=== PATIENT | female | born 1995 | race American Indian/Alaskan Native ===

== ENCOUNTER 2018-02-09 14:31 | Emergency (ER) | payer MEDICAID, OTHER ==
[2018-02-09 14:57] VITALS: BP 105/61
[2018-02-09 15:19] LABS: Bacteria,Urine 1+ /HPF (Negative); Bilirubin,Urine NEG (Negative); Blood,Urine SM (Negative); Color,Urine Yellow (Yellow); Mucus,Urine 3+ /HPF; Protein,Urine <15 mg/dL mg/dL (Negative); Urobilinogen,Urine < 2.0 mg/dL (<2.0)
[2018-02-09 15:20] LABS: HCG Qualitative,Urine Negative (Negative)
[2018-02-09] MEDS ORDERED: MOTRIN PO ONE (17:00)
--- NOTE | 2018-02-09 18:01 | Emergency Department Report ---
ED Chest Pain HPI - General Chief Complaint: Chest Pain Stated Complaint: BACK PAIN, C/P, DC Time Seen by Provider: 02/09/18 16:48 Source: patient Mode of arrival: Ambulatory Limitations: No Limitations - History of Present Illness Initial Comments: Patient is a 22-year-old -[place] female who has had 2 days of back and chest pain. Patient states this is soreness that hurts when she breathes hurts when she moves. Patient has a very mild cough is nonproductive as well. Patient denies any fevers chills nausea vomiting diarrhea at this time. Severity scale (0 -10): 4 - Related Data Previous Rx's Medication Instructions Recorded Last Taken Type Azithromycin [Zithromax TAB] 500 mg PO QDAY #3 tablet 08/03/14 Unknown Rx Naproxen [Naprosyn TAB] 500 mg PO BID #20 tablet 08/03/14 Unknown Rx Prednisone [Prednisone 10 mg 10 mg PO .TAPER #1 tab.ds.pk 08/03/14 Unknown Rx (6-Day Pack, 21 Tabs)] Promethazine /Codeine 5 ml PO Q6H PRN #120 ml 08/03/14 Unknown Rx [Phenergan/Codeine 6.25-10 mg/5 ml] Ibuprofen [Motrin] 600 mg PO Q8H PRN #20 tablet 02/09/18 Unknown Rx predniSONE [Deltasone] 20 mg PO QDAY #5 tab 02/09/18 Unknown Rx traMADol [Ultram] 50 mg PO Q6HR PRN #10 tablet 02/09/18 Unknown Rx Allergies Allergy/AdvReac Type Severity Reaction Status Date / Time No Known Allergies Allergy Verified 02/09/18 14:51 Heart Score - HEART Score History: Slightly suspicious EKG: Normal Age: < 45 Risk factors: No known risk factors Troponin: < normal limit (troponin was not done secondary to her age) HEART Score: 0 ED Review of Systems ROS: Stated complaint: BACK PAIN, C/P, DC Other details as noted in HPI Comment: All other systems reviewed and negative ED Past Medical Hx - Past Medical History Previous Medical History?: No - Surgical History Past Surgical History?: No - Social History Smoking Status: Current Every Day Smoker Substance Use Type: Alcohol - Medications Home Medications: Home Medications Medication Instructions Recorded Confirmed Last Taken Type Azithromycin [Zithromax TAB] 500 mg PO QDAY #3 tablet 08/03/14 Unknown Rx Naproxen [Naprosyn TAB] 500 mg PO BID #20 tablet 08/03/14 Unknown Rx Prednisone [Prednisone 10 mg 10 mg PO .TAPER #1 tab.ds.pk 08/03/14 Unknown Rx (6-Day Pack, 21 Tabs)] Promethazine /Codeine 5 ml PO Q6H PRN #120 ml 08/03/14 Unknown Rx [Phenergan/Codeine 6.25-10 mg/5 ml] Ibuprofen [Motrin] 600 mg PO Q8H PRN #20 tablet 02/09/18 Unknown Rx predniSONE [Deltasone] 20 mg PO QDAY #5 tab 02/09/18 Unknown Rx traMADol [Ultram] 50 mg PO Q6HR PRN #10 tablet 02/09/18 Unknown Rx ED Physical Exam - General Limitations: No Limitations General appearance: alert, in no apparent distress - Head Head exam: Present: atraumatic, normocephalic - Eye Eye exam: Present: normal appearance - ENT ENT exam: Present: mucous membranes moist - Neck Neck exam: Present: normal inspection - Respiratory Respiratory exam: Present: normal lung sounds bilaterally. Absent: respiratory distress, wheezes, rales, rhonchi - Cardiovascular Cardiovascular Exam: Present: regular rate, normal rhythm. Absent: systolic murmur, diastolic murmur, rubs, gallop - GI/Abdominal GI/Abdominal exam: Present: soft, normal bowel sounds. Absent: distended, tenderness, guarding, rebound - Extremities Exam Extremities exam: Present: normal inspection - Back Exam Back exam: Present: normal inspection - Neurological Exam Neurological exam: Present: alert, oriented X3 - Psychiatric Psychiatric exam: Present: normal affect, normal mood - Skin Skin exam: Present: warm, dry, intact, normal color. Absent: rash ED Course Vital Signs 02/09/18 14:52 Temperature 97.9 F Pulse Rate 89 Respiratory 16 Rate Blood Pressure 105/61 O2 Sat by Pulse 100 Oximetry ED Medical Decision Making - EKG Data -: EKG Interpreted by Me EKG shows normal: sinus rhythm, axis, intervals, QRS complexes, ST-T waves Rate: normal - EKG Data Interpretation: normal EKG - Radiology Data Chest x-ray is within normal limits - Medical Decision Making Patient will be treated for pleurisy and be discharged home. Critical care attestation.: If time is entered above; I have spent that time in minutes in the direct care of this critically ill patient, excluding procedure time. ED Disposition Clinical Impression: Pleurisy Disposition: DC-01 TO HOME OR SELFCARE Is pt being admited?: No Does the pt Need Aspirin: No Condition: Stable Instructions: Pleurisy (ED) Referrals: PRIMARY CARE, [Primary Care Provider] - 3-5 Days
--- NOTE | 2018-02-09 18:26 | XRay Report ---
FINAL REPORT EXAM: XR CHEST ROUTINE 2V HISTORY: cough TECHNIQUE: PA and lateral views of the chest PRIORS: None. FINDINGS: Lines, tubes, and devices: N/A Lungs and pleura: Trachea is normal in position. Lungs are clear of infiltrate, pleural effusion, vascular congestion, or pneumothorax. Cardiomediastinal silhouette: Cardiac and mediastinal silhouettes are unremarkable. Other: Bony structures are intact. IMPRESSION: No acute cardiopulmonary process seen.
== END 2018-02-09 18:12 | disposition home or self-care (01) ==
LOC: ED 14:31
DX: R09.1 Pleurisy (principal); M54.9 Dorsalgia, unspecified; F17.200 Nicotine dependence, unspecified, uncomplicated
CPT/HCPCS: 71046; 81001; 81025; 93005; 93010; 99284

== ENCOUNTER 2018-09-30 10:34 | Emergency (ER) | payer OTHER ==
[2018-09-30 10:39] VITALS: BP 107/53
[2018-09-30] MEDS ORDERED: DECADRON IM ONE (11:02)
[2018-09-30] MEDS ORDERED: BICILLIN L-A IM ONE (11:02)
--- NOTE | 2018-09-30 11:05 | Emergency Department Report ---
ED ENT HPI - General Chief complaint: Sore Throat Stated complaint: SORE THROAT/HARD TO SWALLOW Time Seen by Provider: 09/30/18 10:55 Source: patient Mode of arrival: Ambulatory Limitations: No Limitations - History of Present Illness Initial comments: The patient is a 20-year-old female presenting with sore throat. Patient states she has had pain with swallowing for the past 3 days. Pain is 8 out of 10 in severity. Patient has some radiation of pain into the bilateral ears. She states pain on the throat was a burning sensation and sharp when she swallows. Patient's had chills but no objective fever. Patient denies cough nausea vomiting next stiffness at this time. - Related Data Previous Rx's Medication Instructions Recorded Last Taken Type Azithromycin [Zithromax TAB] 500 mg PO QDAY #3 tablet 08/03/14 Unknown Rx Naproxen [Naprosyn TAB] 500 mg PO BID #20 tablet 08/03/14 Unknown Rx Prednisone [Prednisone 10 mg 10 mg PO .TAPER #1 tab.ds.pk 08/03/14 Unknown Rx (6-Day Pack, 21 Tabs)] Promethazine /Codeine 5 ml PO Q6H PRN #120 ml 08/03/14 Unknown Rx [Phenergan/Codeine 6.25-10 mg/5 ml] Ibuprofen [Motrin] 600 mg PO Q8H PRN #20 tablet 02/09/18 Unknown Rx predniSONE [Deltasone] 20 mg PO QDAY #5 tab 02/09/18 Unknown Rx traMADol [Ultram] 50 mg PO Q6HR PRN #10 tablet 02/09/18 Unknown Rx HYDROcodone/APAP 5-325 [Bath 1 each PO Q4HR PRN #12 tablet 09/30/18 Unknown Rx 5/325] Ibuprofen [Motrin] 600 mg PO Q8H PRN #20 tablet 09/30/18 Unknown Rx Allergies Allergy/AdvReac Type Severity Reaction Status Date / Time No Known Allergies Allergy Verified 02/09/18 14:51 ED Dental HPI - General Chief complaint: Sore Throat Stated complaint: SORE THROAT/HARD TO SWALLOW Time Seen by Provider: 09/30/18 10:55 Source: patient Mode of arrival: Ambulatory Limitations: No Limitations - Related Data Previous Rx's Medication Instructions Recorded Last Taken Type Azithromycin [Zithromax TAB] 500 mg PO QDAY #3 tablet 08/03/14 Unknown Rx Naproxen [Naprosyn TAB] 500 mg PO BID #20 tablet 08/03/14 Unknown Rx Prednisone [Prednisone 10 mg 10 mg PO .TAPER #1 tab.ds.pk 08/03/14 Unknown Rx (6-Day Pack, 21 Tabs)] Promethazine /Codeine 5 ml PO Q6H PRN #120 ml 08/03/14 Unknown Rx [Phenergan/Codeine 6.25-10 mg/5 ml] Ibuprofen [Motrin] 600 mg PO Q8H PRN #20 tablet 02/09/18 Unknown Rx predniSONE [Deltasone] 20 mg PO QDAY #5 tab 02/09/18 Unknown Rx traMADol [Ultram] 50 mg PO Q6HR PRN #10 tablet 02/09/18 Unknown Rx HYDROcodone/APAP 5-325 [Bath 1 each PO Q4HR PRN #12 tablet 09/30/18 Unknown Rx 5/325] Ibuprofen [Motrin] 600 mg PO Q8H PRN #20 tablet 09/30/18 Unknown Rx Allergies Allergy/AdvReac Type Severity Reaction Status Date / Time No Known Allergies Allergy Verified 02/09/18 14:51 ED Review of Systems ROS: Stated complaint: SORE THROAT/HARD TO SWALLOW Other details as noted in HPI Comment: All other systems reviewed and negative ED Past Medical Hx - Past Medical History Previous Medical History?: No - Surgical History Past Surgical History?: No - Social History Smoking Status: Never Smoker Substance Use Type: None - Medications Home Medications: Home Medications Medication Instructions Recorded Confirmed Last Taken Type Azithromycin [Zithromax TAB] 500 mg PO QDAY #3 tablet 08/03/14 Unknown Rx Naproxen [Naprosyn TAB] 500 mg PO BID #20 tablet 08/03/14 Unknown Rx Prednisone [Prednisone 10 mg 10 mg PO .TAPER #1 tab.ds.pk 08/03/14 Unknown Rx (6-Day Pack, 21 Tabs)] Promethazine /Codeine 5 ml PO Q6H PRN #120 ml 08/03/14 Unknown Rx [Phenergan/Codeine 6.25-10 mg/5 ml] Ibuprofen [Motrin] 600 mg PO Q8H PRN #20 tablet 02/09/18 Unknown Rx predniSONE [Deltasone] 20 mg PO QDAY #5 tab 02/09/18 Unknown Rx traMADol [Ultram] 50 mg PO Q6HR PRN #10 tablet 02/09/18 Unknown Rx HYDROcodone/APAP 5-325 [Bath 1 each PO Q4HR PRN #12 tablet 09/30/18 Unknown Rx 5/325] Ibuprofen [Motrin] 600 mg PO Q8H PRN #20 tablet 09/30/18 Unknown Rx ED Physical Exam - General Limitations: No Limitations General appearance: alert, in no apparent distress - Head Head exam: Present: atraumatic, normocephalic - Eye Eye exam: Present: normal appearance - ENT ENT exam: Present: mucous membranes moist, TM's normal bilaterally. Absent: normal orophraynx (patient with bilateral tonsillar erythema and swelling.) - Neck Neck exam: Present: normal inspection, lymphadenopathy (anterior cervical lymph nodes are present and palpation.) - Respiratory Respiratory exam: Present: normal lung sounds bilaterally. Absent: respiratory distress, wheezes, rales, rhonchi, stridor - Cardiovascular Cardiovascular Exam: Present: regular rate, normal rhythm. Absent: systolic murmur, diastolic murmur, rubs, gallop - GI/Abdominal GI/Abdominal exam: Present: soft, normal bowel sounds - Extremities Exam Extremities exam: Present: normal inspection - Back Exam Back exam: Present: normal inspection - Neurological Exam Neurological exam: Present: alert, oriented X3 - Psychiatric Psychiatric exam: Present: normal affect, normal mood - Skin Skin exam: Present: warm, dry, intact, normal color. Absent: rash ED Course Vital Signs 09/30/18 10:36 Temperature 97.6 F Pulse Rate 72 Respiratory 14 Rate Blood Pressure 107/53 O2 Sat by Pulse 100 Oximetry ED Medical Decision Making - Medical Decision Making Patient is meeting [facility] criteria for empiric treatment for strep. Patient given Bicillin Decadron and be sent home with appropriate pain management. Critical care attestation.: If time is entered above; I have spent that time in minutes in the direct care of this critically ill patient, excluding procedure time. ED Disposition Clinical Impression: Pharyngitis Qualifiers: Pharyngitis/tonsillitis etiology: unspecified etiology Qualified Code(s): J02.9 - Acute pharyngitis, unspecified Disposition: DC- TO HOME OR SELFCARE Is pt being admited?: No Does the pt Need Aspirin: No Condition: Stable Instructions: Pharyngitis (ED) Time of Disposition: 11:04
== END 2018-09-30 11:14 | disposition home or self-care (01) ==
LOC: ED 10:34
DX: J02.9 Acute pharyngitis, unspecified (principal)
CPT/HCPCS: 96372; 99282; J0561; J1100